=== PATIENT | female | born 1990 | race Caucasian/White ===

== ENCOUNTER 2023-08-10 19:50 | Emergency (ER) | payer OTHER ==
[2023-08-10 20:00] VITALS: BP 102/69; PULSE 84; RESP 20; TEMP 98.4; BMI 24.4
== END 2023-08-11 01:00 | disposition home or self-care (01) ==
LOC: JER 19:50
DX: O99.891 Other specified diseases and conditions complicating pregnancy (principal); R07.89 Other chest pain; R51.9 Headache, unspecified; Z3A.15 15 weeks gestation of pregnancy
CPT/HCPCS: 36415; 84484; 93005; 93010; 99284-25